=== PATIENT | female | born 1995 | race Caucasian/White ===

== ENCOUNTER 2021-04-05 22:47 | Emergency (ER) | payer OTHER ==
[2021-04-05 22:54] VITALS: TEMP 98.1; BMI 16.1
[2021-04-05] MEDS ORDERED: GLUCAGON 1 MG KIT IVPUSH ONE (23:16)
[2021-04-06 00:23] LABS: BASO % 1.2 % (0-2.0); EOS % 5.1 % (0-4.5); LYMPH % 30.5 % (8-40); MCH 29.4 pg (25.7-33.7); MCHC 34.1 g/dl (32.0-36.0); MEAN CELL VOLUME 86.2 fl (80-96); MEAN PLT VOLUME 11.7 fl (7.5-11.1); MONO % 9.7 % (3.8-10.2); NEUT % 53.5 % (42.8-82.8); PLATELET COUNT 151 10^3/uL (134-434); RDW 14.3 % (11.6-15.6); WHITE BLOOD COUNT 9.5 K/mm3 (4.0-10.0)
[2021-04-06 00:36] LABS: ALBUMIN 4.2 g/dl (3.4-5.0); BLOOD UREA NITROGEN 15.1 mg/dL (7-18)
[2021-04-06 00:39] LABS: CREATININE 0.8 mg/dL (0.55-1.3)
[2021-04-06 00:41] LABS: BILIRUBIN,TOTAL 0.4 mg/dL (0.2-1); TOT PROT 8.2 g/dl (6.4-8.2)
[2021-04-06 03:13] VITALS: BP 111/77; PULSE 2
== END 2021-04-06 03:20 | disposition short-term general hospital (02) ==
LOC: JER 22:47
PROC: 3E033GC Introduction of Other Therapeutic Substance into Peripheral Vein, Percutaneous Approach (ICD-10-PCS; principal; 2021-04-05)
DX: T18.128A Food in esophagus causing other injury, initial encounter (principal)
CPT/HCPCS: 36415; 70490-TC; 71250-TC; 74150-TC; 80053; 84703; 85025; 96374; 99285-25

== ENCOUNTER 2022-05-15 03:40 | Inpatient (IN) | payer OTHER ==
[2022-05-15] MEDS ORDERED: AMPICILLIN - 2 GM in DEXTROSE 5%-WATER 100 ML IVPB ONE (04:00)
[2022-05-15] MEDS ORDERED: AMPICILLIN SODIUM 2 GM VIAL ONE (04:17)
[2022-05-15] MEDS ORDERED: OXYTOCIN 20 UNITS in 0.9% NS 20 UNIT/1,000 ML INFUS.BAG IV ONE ×2 (04:23→07:00)
[2022-05-15] MEDS ORDERED: oxyCODONE HCL 5 MG TABLET PO PRN (04:59)
[2022-05-15] MEDS ORDERED: BISACODYL 10 MG SUPP.RECT RC PRN (04:59)
[2022-05-15] MEDS ORDERED: BENZOCAINE 28 GM HEMORRHOIDAL OINTMENT TP PRN (04:59)
[2022-05-15] MEDS ORDERED: WITCH HAZEL 50% (TUCKS) 40 PAD/JAR PAD TP PRN (04:59)
[2022-05-15] MEDS ORDERED: ACETAMINOPHEN 325 MG TABLET (FP) PO PRN (04:59)
[2022-05-15] MEDS ORDERED: METHYLERGONOVINE MALEATE 0.2 MG/1 ML AMP IM PRN (04:59)
[2022-05-15] MEDS ORDERED: BENZOCAINE 20% 57 GM BOTTLE TP PRN (04:59)
[2022-05-15] MEDS ORDERED: OXYTOCIN 20 UNITS in 0.9% NS 20 UNIT/1,000 ML INFUS.BAG IV SCH (05:00)
[2022-05-15] MEDS ORDERED: DEXTROSE 5%-LACTATED RINGERS 1,000 ML IV SCH (05:00)
[2022-05-15 05:07] LABS: INR 0.87 (0.83-1.09)
[2022-05-15 05:10] LABS: ACTIVATED PTT 32.5 SECONDS (25.2-36.5); BASO % 0.5 % (0-2.0); EOS % 0.3 % (0-4.5); HEMATOCRIT 40.5 % (32.4-45.2); HEMOGLOBIN 13.4 GM/dL (10.7-15.3); LYMPH % 29.5 % (8-40); MCH 26.7 pg (25.7-33.7); MCHC 33.1 g/dl (32.0-36.0); MEAN CELL VOLUME 80.7 fl (80-96); MEAN PLT VOLUME 11.5 fl (7.5-11.1); MONO % 8.2 % (3.8-10.2); NEUT % 61.5 % (42.8-82.8); PLATELET COUNT 156 10^3/uL (134-434); RBC 5.02 M/mm3 (3.60-5.2); RDW 14.8 % (11.6-15.6); WHITE BLOOD COUNT 7.8 K/mm3 (4.0-10.0)
[2022-05-15] MEDS: IBUPROFEN 600 MG TABLET (FP) PO PRN ×3 (05:30→19:05)
[2022-05-15] MEDS ORDERED: IBUPROFEN 600 MG TABLET (FP) PO ONE (05:35)
[2022-05-15 06:53] LABS: CALCIUM 8.6 mg/dL (8.5-10.1)
[2022-05-15 06:54] LABS: BLOOD UREA NITROGEN 10.4 mg/dL (7-18)
[2022-05-15 06:57] LABS: CREATININE 0.8 mg/dL (0.55-1.3)
[2022-05-15 08:05] VITALS: BMI 21.5
[2022-05-15] MEDS: PRENATAL VITAMINS W/ FOLIC ACID TABLET (FP) PO SCH (09:44)
[2022-05-15 16:00] LABS: HIV INTERPRETATION NEGATIVE (NEGATIVE)
[2022-05-16 07:55] LABS: BASO % 0.4 % (0-2.0); EOS % 0.7 % (0-4.5); HEMATOCRIT 35.4 % (32.4-45.2); HEMOGLOBIN 11.6 GM/dL (10.7-15.3); LYMPH % 26.8 % (8-40); MCH 27.2 pg (25.7-33.7); MCHC 32.8 g/dl (32.0-36.0); MEAN CELL VOLUME 82.9 fl (80-96); MEAN PLT VOLUME 10.9 fl (7.5-11.1); MONO % 6.6 % (3.8-10.2); NEUT % 65.5 % (42.8-82.8); PLATELET COUNT 149 10^3/uL (134-434); RBC 4.28 M/mm3 (3.60-5.2); WHITE BLOOD COUNT 10.3 K/mm3 (4.0-10.0)
[2022-05-16] MEDS: PRENATAL VITAMINS W/ FOLIC ACID TABLET (FP) PO SCH (10:03)
[2022-05-16] MEDS: IBUPROFEN 600 MG TABLET (FP) PO PRN (20:50)
[2022-05-16] MEDS ORDERED: SENNOSIDES/DOCUSATE COMBO (SENNA PLUS) TABLET (UD) PO PRN (22:00)
[2022-05-17] MEDS: PRENATAL VITAMINS W/ FOLIC ACID TABLET (FP) PO SCH (09:18)
[2022-05-17] MEDS: IBUPROFEN 600 MG TABLET (FP) PO PRN (09:18)
[2022-05-17 11:03] VITALS: BP 129/67; PULSE 68; RESP 16; TEMP 98.4
== END 2022-05-17 13:50 | disposition home or self-care (01) | DRG 560 ==
LOC: JDEL 03:40 → JLDR 04:05 → J3W 07:30
PROVIDERS: ADMIT Obstetrics & Gynecology; ATTEND Obstetrics & Gynecology
PROC: 10E0XZZ Delivery of Products of Conception, External Approach (ICD-10-PCS; principal; 2022-05-15)
DX: O70.0 First degree perineal laceration during delivery (principal); Z3A.38 38 weeks gestation of pregnancy; Z37.0 Single live birth
CPT/HCPCS: 36415; 59409; 80048; 85025; 85610; 85730; 86780; 86850; 86900; 86901; 87389; C9803-CS; U0003; U0005

== ENCOUNTER 2022-08-18 18:52 | Emergency (ER) | payer OTHER ==
[2022-08-18 18:56] VITALS: BP 104/71; PULSE 78; RESP 18; TEMP 97; BMI 19.2
== END 2022-08-18 20:32 | disposition home or self-care (01) ==
LOC: JERFT 18:52
DX: S93.401A Sprain of unspecified ligament of right ankle, initial encounter (principal); X50.0XXA Overexertion from strenuous movement or load, initial encounter
CPT/HCPCS: 73610-TC-RT-FY; 99283-25

== ENCOUNTER 2022-11-03 10:35 | Emergency (ER) | payer OTHER ==
[2022-11-03 10:55] VITALS: RESP 16; TEMP 97.8; BMI 18.8
[2022-11-03 13:17] LABS: BASO % 1.1 % (0-2.0); EOS % 6.6 % (0-4.5); HEMATOCRIT 42.9 % (32.4-45.2); HEMOGLOBIN 14.3 GM/dL (10.7-15.3); LYMPH % 31.5 % (8-40); MCH 28.4 pg (25.7-33.7); MCHC 33.3 g/dl (32.0-36.0); MEAN CELL VOLUME 85.3 fl (80-96); MEAN PLT VOLUME 12.8 fl (7.5-11.1); MONO % 11.1 % (3.8-10.2); NEUT % 49.7 % (42.8-82.8); PLATELET COUNT 171 10^3/uL (134-434); RBC 5.03 M/mm3 (3.60-5.2); RDW 14.6 % (11.6-15.6); WHITE BLOOD COUNT 7.8 K/mm3 (4.0-10.0)
[2022-11-03 13:19] LABS: VENOUS BASE EXCESS 0.5 mmol/L (-2-2); VENOUS O2 SATURATION 74.9 % (70-80); VENOUS PCO2 46.6 mmHg (38-52); VENOUS PH 7.37 (7.310-7.410)
[2022-11-03 13:37] LABS: CHLORIDE 110 mmol/L (98-107); POTASSIUM 4.1 mmol/L (3.5-5.1); SODIUM 141 mmol/L (136-145)
[2022-11-03 13:40] LABS: CALCIUM 9.8 mg/dL (8.5-10.1)
[2022-11-03 13:41] LABS: ALBUMIN 4.1 g/dl (3.4-5.0); ANION GAP 5 MMOL/L (8-16); BLOOD UREA NITROGEN 19.2 mg/dL (7-18); CO2 26 mmol/L (21-32); GLUCOSE,RANDOM 75 mg/dL (74-106)
[2022-11-03 13:44] LABS: CREATININE 0.7 mg/dL (0.55-1.3); SGOT/AST 26 U/L (15-37); SGPT/ALT 37 U/L (13-61)
[2022-11-03 13:45] LABS: TOT PROT 7.9 g/dl (6.4-8.2)
[2022-11-03 13:46] LABS: BILIRUBIN,TOTAL 0.5 mg/dL (0.2-1)
[2022-11-03 13:47] LABS: ALK PHOS 89 U/L (45-117)
[2022-11-03 15:21] VITALS: BP 112/75; PULSE 60
== END 2022-11-03 15:21 | disposition home or self-care (01) ==
LOC: JERFT 10:35 → JER 10:35 → JERFT 15:21
DX: R42 Dizziness and giddiness (principal); R20.2 Paresthesia of skin
CPT/HCPCS: 36415; 80053; 80307; 82803; 84443; 84703; 85025; 93005; 93010; 99284-25